=== PATIENT | female | born 2000 | race Caucasian/White ===

== ENCOUNTER 2018-09-02 15:07 | Emergency (ER) | payer OTHER ==
--- NOTE | 2018-09-02 15:54 | EDM.PDOC ---
ED HPI GENERAL MEDICAL PROBLEM - General Chief Complaint: Genitourinary Problem Stated Complaint: PAINFUL URINATION Time Seen by Provider: 09/02/18 15:23 Source of Information: Reports: Patient, RN Notes Reviewed History Limitations: Reports: No Limitations - History of Present Illness INITIAL COMMENTS - FREE TEXT/NARRATIVE: Patient is a 18-year-old female who presents to the ED for the evaluation of urinary discomfort. The patient notes this to be present for around 2 days now. She denies any fevers or chills with this. She did notice a little bit of blood in her urine this morning as well. She states that she has dysuria, frequency and, urgency with this as well. She denies any previous UTIs or kidney infections. She denies any vaginal discharge, or other pelvic pain. Bladder Pain Score (Numeric/FACES): 6 - Related Data Allergies Allergy/AdvReac Type Severity Reaction Status Date / Time No Known Allergies Allergy Verified 09/02/18 15:26 Home Meds: Home Meds Ciprofloxacin HCl [Cipro] 250 mg PO BID #10 tablet 09/02/18 [Rx] Past Medical History - Past Health History Medical/Surgical History: Denies Medical/Surgical History Social & Family History - Tobacco Use Smoking Status *Q: Never Smoker - Recreational Drug Use Recreational Drug Use: No ED ROS GENERAL - Review of Systems Review Of Systems: See Below Constitutional: Denies: Fever, Chills HEENT: Reports: No Symptoms Respiratory: Reports: No Symptoms Cardiovascular: Reports: No Symptoms Endocrine: Reports: No Symptoms GI/Abdominal: Reports: No Symptoms : Reports: Dysuria, Frequency, Urgency Musculoskeletal: Reports: No Symptoms Skin: Reports: No Symptoms Neurological: Reports: No Symptoms Psychiatric: Reports: No Symptoms Hematologic/Lymphatic: Reports: No Symptoms Immunologic: Reports: No Symptoms ED EXAM, RENAL/ - Physical Exam Exam: See Below Exam Limited By: No Limitations General Appearance: Alert, WD/WN, No Apparent Distress Respiratory/Chest: No Respiratory Distress, Lungs Clear, Normal Breath Sounds, No Accessory Muscle Use, Chest Non-Tender Cardiovascular: Normal Peripheral Pulses, Regular Rate, Rhythm, No Murmur GI/Abdominal: Normal Bowel Sounds, Soft, Non-Tender, No Distention, No Mass Extremities: Normal Inspection, Normal Capillary Refill Neurological: Alert, Oriented, Normal Cognition, No Motor/Sensory Deficits Psychiatric: Normal Affect, Normal Mood Skin Exam: Warm, Dry, Intact, Normal Color, No Rash Course - Vital Signs Last Recorded V/S: Last Vital Signs Temp 98.8 F 09/02/18 15:24 Pulse 95 09/02/18 15:24 Resp 19 09/02/18 15:24 BP 151/109 H 09/02/18 15:24 Pulse Ox 95 09/02/18 15:24 - Orders/Labs/Meds Orders: Active Orders 24 hr Category Date Time Status CULTURE URINE [RM] Stat Lab 09/02/18 15:46 Ordered Labs: Laboratory Tests 09/02/18 Range/Units 15:30 Urine Color [place] H (Yellow) Urine Appearance Cloudy H (Clear) Urine pH 7.0 (5.0-8.0) Ur Specific [place] > or = 1.030 (1.005-1.030) Urine Protein 3+ H (Negative) Urine Glucose (UA) Negative (Negative) Urine Ketones Negative (Negative) Urine Occult Blood 3+ H (Negative) Urine Nitrite Negative (Negative) Urine Bilirubin Negative (Negative) Urine Urobilinogen 0.2 (0.2-1.0) Ur Leukocyte Esterase 1+ H (Negative) Urine RBC >100 H (0-5) /hpf Urine WBC >100 H (0-5) /hpf Urine WBC Clumps Many (NOT SEEN) /hpf Ur Epithelial Cells 0-5 (0-5) /hpf Urine Bacteria Many H (FEW) /hpf Urine Mucus Few (FEW) /hpf - Re-Assessments/Exams Free Text/Narrative Re-Assessment/Exam: 09/02/18 16:06 Patient resents to the ED for the evaluation of urinary symptoms. UA was collected by triage nurse, and did demonstrate a positive urinalysis for UTI. I sent the patient a prescription for antibiotics to [facility] located near [facility]. Her urine was also sent for culture. Departure - Departure Time of Disposition: 15:52 Disposition: Home, Self-Care 01 Condition: Fair Clinical Impression: UTI (urinary tract infection) Qualifiers: Urinary tract infection type: acute cystitis Hematuria presence: with hematuria Qualified Code(s): N30.01 - Acute cystitis with hematuria - Discharge Information *PRESCRIPTION DRUG MONITORING PROGRAM REVIEWED*: No *COPY OF PRESCRIPTION DRUG MONITORING REPORT IN PATIENT CASSANDRA: No Prescriptions: Ciprofloxacin HCl [Cipro] 250 mg PO BID #10 tablet Instructions: Urinary Tract Infection, Adult, [id number] Referrals: PCP,None [Primary Care Provider] - Forms: ED Department Discharge Additional Instructions: You have been evaluated in the ED today for your urinary symptoms. Your urinalysis was positive for a UTI at this time. This will be sent for culture, You will be notified if you should need a change in your antibiotics. You have been prescribed ciprofloxacin 250 mg, one tablet twice a day for 5 days. Please take all of this medication until it is gone. You may take Azo, [id number] urinary pain relief. This will also help with the burning with urination, however it will make your urine turn orange. Please return to the ED if your symptoms should change or worsen. - My Orders Last 24 Hours: My Active Orders 09/02/18 15:46 CULTURE URINE [RM] Stat - Assessment/Plan Last 24 Hours: My Active Orders 09/02/18 15:46 CULTURE URINE [RM] Stat
== END 2018-09-02 16:02 | disposition home or self-care (01) ==
LOC: JD.ED 15:07
DX: N30.01 Acute cystitis with hematuria (principal)
CPT/HCPCS: 81001; 87086; 87088; 87186; 99283